=== PATIENT | female | born 1990 | race African-American/Black ===

== ENCOUNTER 2020-04-19 15:56 | Emergency (ER) | payer OTHER ==
[~2020-04-19] VITALS: Ht 160 cm; Wt 80.0 kg
[2020-04-19] MEDS ORDERED: SODIUM CHLORIDE 0.9% 1,000 ML IV ONE (16:05)
[2020-04-19] MEDS ORDERED: METHYLPREDNISOLONE SOD SUCC 125 MG/2 ML VIAL IV ONE (16:15)
[2020-04-19] MEDS ORDERED: FAMOTIDINE 20MG/2ML VIAL IV ONE (16:45)
[2020-04-19] MEDS ORDERED: PREDNISONE 20MG TABLET PO ONE (18:30)
[2020-04-19 18:48] VITALS: BP 125/65
== END 2020-04-19 18:50 | disposition home or self-care (01) ==
LOC: ER 15:56
DX: T78.1XXA Other adverse food reactions, not elsewhere classified, initial encounter (principal); Z91.010 Allergy to peanuts; X58.XXXA Exposure to other specified factors, initial encounter; Y93.89 Activity, other specified; Y92.89 Other specified places as the place of occurrence of the external cause; Y99.8 Other external cause status
CPT/HCPCS: 96374; 96375; 99284; J2930; J3490; J7030; J7512